=== PATIENT | male | born 1995 | race Hispanic/Latino ===

== ENCOUNTER 2018-04-20 10:32 | Inpatient (IN) | payer SELFPAY ==
[2018-04-20] MEDS ORDERED: Fentanyl 100 MCG/2 ML VIAL ONE (10:45)
[2018-04-20 11:02] LABS: #Basophils 0.1 thou/uL (0.0-0.2); #Eosinphils 0.2 thou/uL (0.0-0.7); #Lymphocytes 2.1 thou/uL (1.20-3.40); #Monocytes 0.9 thou/uL (0.11-0.59); #Neutrophils 4.9 thou/uL (1.40-6.50); %Basophils 1.1 % (0.0-1.0); %Eosinophils 2.2 % (0.0-10.0); %Lymphocytes 25.5 % (21.0-51.0); %Monocytes 11.4 % (0.0-10.0); %Neutrophils 59.9 % (42.0-75.0); Hemoglobin 16.6 g/dL (14.0-18.0); Mean Corpuscular HGB CONC 34.9 g/dL (32.0-36.0); Mean Corpuscular Hemoglobin 32.5 pg (27.0-31.0); Mean Corpuscular Volume 93.1 fL (78.0-98.0); Mean Platelet Volume 7.5 fL (7.4-10.4); Platelet Count 199 thou/uL (130-400); RBC Distribution Width 11.7 % (11.5-14.5); Red Blood Cell (RBC) Count 5.11 mill/uL (4.70-6.10); White Blood Cell (WBC) Count 8.2 thou/uL (4.8-10.8)
--- NOTE | 2018-04-20 11:13 | RAD ---
PORTABLE CHEST ONE VIEW: Date: 04-20-18 Time: 10:38 a.m. History: Fell off an 8 ft ladder. Chest pain. FINDINGS: The heart size is normal. The lungs are expanded without focal areas of consolidation, pneumothorax, or pleural effusions. IMPRESSION: No acute process. POS: [facility]
[2018-04-20 11:22] LABS: ALT (SGPT) 27 U/L (8-55); AST (SGOT) 24 U/L (5-34); Albumin 4.6 g/dL (3.5-5.0); Alkaline Phosphatase 118 U/L (40-150); Anion Gap 15 mmol/L (10-20); BUN (Urea Nitrogen) 16 mg/dL (8.9-20.6); Bilirubin, Total 1.1 mg/dL (0.2-1.2); Calc. Creatinine Clearance 0 mL/min (70-130); Calcium 9.9 mg/dL (7.8-10.44); Carbon Dioxide 23 mmol/L (22-29); Chloride 106 mmol/L (98-107); Estimated GFR-MDRD 76; Globulin 3.3 g/dL (2.4-3.5); Glucose 102 mg/dL (70-105); Potassium 3.7 mmol/L (3.5-5.1); Protein, Total 7.9 g/dL (6.0-8.3); Sodium 140 mmol/L (136-145)
--- NOTE | 2018-04-20 11:33 | RAD ---
RIGHT LEG TWO VIEWS: History: Fall, right leg pain and deformity. FINDINGS/IMPRESSION: There are displaced fractures involving the shafts of the right tibia and fibula. Mild angulation is also present. POS: [facility]
--- NOTE | 2018-04-20 11:41 | CT ---
CT CERVICAL SPINE WITH CORONAL AND SAGITTAL REFORMATIONS: Date: 04/20/18 HISTORY: Level II trauma, fall from 8-ft. FINDINGS: No acute fracture or subluxation is seen. No facet malalignment is identified. The cervical lordosis is maintained. There are mild degenerative changes at C5-6 level. Report called over the phone to Dr. Angelina Chery of the emergency room at 1118 hours. CODE CR. POS: [facility]
--- NOTE | 2018-04-20 11:46 | CT ---
CT BRAIN WITHOUT CONTRAST: History: Fell from approximately 8 ft. No loss of consciousness. FINDINGS: No evidence of acute infarct, hemorrhage, midline shift, or abnormal extraaxial fluid collections are seen. The ventricular size is normal and basilar cisterns are patent. The bony calvarium is intact. There is mucosal disease in the paranasal sinuses. IMPRESSION: No CT evidence of acute intracranial process. The report was called over the telephone to Dr. Mills in the Emergency Department at 11:13 a.m. POS: [facility]
[2018-04-20] MEDS ORDERED: KETAMINE 100 MG/ML (5ML VIAL) ONE (12:40)
--- NOTE | 2018-04-20 13:38 | HP-2 ---
HISTORY OF PRESENT ILLNESS: The patient is a 22-year-old male that presents after falling f rom a roof this morning while at work. The patient says he slipped on a piece of paper and fell appr oximately 12 feet from the roof landing on both of his feet. His right lower extremity buckled out f rom under him. He denies hitting his right hip or his head. No loss of consciousness. Pain is curr ently 10/10. He has been unable to walk since the fall. Last p.o. intake was at 1700 yesterday. Th e patient complains of right lower extremity pain. Denies cervical or back pain. Denies headache. PAST MEDICAL HISTORY: None. HOME MEDICATIONS: None. PAST SURGICAL HISTORY: None. ALLERGIES: None. REVIEW OF SYSTEMS: Positive for right lower extremity pain as per HPI. Remainder of review of syste ms negative. PHYSICAL EXAMINATION: VITAL SIGNS: BP 136/70, respirations 20, O2 sat 98% on room air, temperature 97.4, pulse 76. GENERAL: Well-nourished, well-developed male. Lying in bed in pain. CARDIOVASCULAR: Heart regular rate and rhythm, no murmur. RESPIRATORY: Lungs are clear to auscultation bilaterally, no increased work of breathing. GASTROINTESTINAL: The abdomen is soft, nontender, nondistended. Bowel sounds present. MUSCULOSKELETAL: Cervical spine with full range of motion, no pain. Negative cervical compression t est. Gross deformity of right lower extremity. Closed fracture. Pedal pulses present bilaterally. Swelling of right foot. NEUROLOGIC: No focal deficits. LABORATORY DATA: WBC 8.2, hemoglobin 16.6, hematocrit 47.6, platelets 199. Sodium 140, potassium 3. 7, chloride 106, carbon dioxide 23, BUN 16, creatinine 1.18, glucose 102, calcium 9.9, total bilirubi n 1.1, AST 24, ALT 27, alkaline phosphatase 118. IMAGING: CT cervical spine without contrast. No acute fracture or subluxation is seen. No facet ma lalignment identified. Cervical lordosis is maintained. Mild degenerative changes at C5-C6. CT brain without contrast: No evidence of acute intracranial process. X-ray tib/fib right leg 2-view: Displaced fractures involving the shafts of the right tibia and fibu la. Mild angulation also present. Chest x-ray 1 view: No acute process. ASSESSMENT AND PLAN: Fall complicated by right displaced tibia and fibula fractures with angulation, closed. Orthopedic surgery, Dr. Menendez, was consulted. Plan for reduction today in the ER follo wed with surgery tomorrow morning. N.p.o. after midnight. Cleared the cervical spine so C-collar no longer needed and was removed. Medications added for better pain control. Right foot x-ray is curr ently pending. The patient was seen and examined with Dr. Porter. Plan was formulated with Dr. Porter.
[2018-04-20] MEDS ORDERED: Dextrose 5% in Water 1,000 ML IV PRN (14:17)
[2018-04-20] MEDS ORDERED: Dextrose 50% Abboject 50 ML SYRINGE SLOW IVP PRN (14:17)
--- NOTE | 2018-04-20 14:26 | RAD ---
RIGHT FOOT THREE VIEWS: Date: 04-20-18 History: Patient fell off 8 ft ladder. Obvious right ankle deformity. FINDINGS: Splint material overlies the foot limiting osseous detail. However, on the AP project of the foot, th ere is a lucency along the long axis of the most lateral aspect of the medial cuneiform which may rep resent a tiny avulsion fracture. In addition, the base of the right second metatarsal does appear to be displaced laterally with respect to the middle cuneiform. Lisfranc injury in this region cannot be excluded and CT scan of the foot is recommended for further evaluation. No additional fracture is se en and there is no dislocation. Subcutaneous soft tissue swelling is seen dorsal to the level of the metatarsals. IMPRESSION: Tiny avulsion fracture seen at the lateral aspect of the medial cuneiform bone with suggestion of sli ght displacement of the base of the second metatarsal related to the middle cuneiform bone suggesting subtle lisfranc injury. CT scan of the right foot is recommended for further evaluation. Above findings discussed with Dr. Kasper in the Emergency Department on 04-20-18 at 1335 hours. POS: [facility]
--- NOTE | 2018-04-20 14:32 | RAD ---
RIGHT LEG 2 VIEWS: Date: 04/20/18 HISTORY: Right tibia and fibula fractures, reduction. FINDINGS/IMPRESSION: There is an interval reduction of the comminuted and displaced fractures involving the shafts of the right tibia and fibula since earlier exam at 1034 hours. POS: [facility]
--- NOTE | 2018-04-20 14:44 | CT ---
CT RIGHT FOOT NONCONTRAST: Date: 04/20/18 HISTORY: Fall. Foot fracture. FINDINGS: Comminuted fracture of the medial cuneiform includes two nondisplaced planes into the first tarsometa tarsal joint. A 0.8 cm triangular fragment is displaced 0.2 cm laterally at the lateral articular mar gin of the medial cuneiform. There is less than 0.2 cm lateral subluxation of the second metatarsal i n relation to the medial cuneiform. Nondisplaced axial fracture extends through the inferior margin o f the middle cuneiform. Metatarsal bases are intact. IMPRESSION: Midfoot fracture/dislocation as detailed above, involving the medial and middle cuneiforms, and mild lateral subluxation at the second tarsometatarsal joint. Please consider immobilization and urgent or thopedic evaluation. POS: [facility]
[2018-04-20] MEDS: Ketorolac Tromethamine 30 MG/ML VIAL IVP SCH ×3 (16:08→22:08)
[2018-04-20] MEDS: HYDROcodone/Acetaminophen 10/325 mg Tablet PO PRN (16:08)
[2018-04-20] MEDS: Cyclobenzaprine 10 MG TAB PO PRN (17:53)
[2018-04-20] MEDS ORDERED: HYDROcodone/Acetaminophen 10/325 mg Tablet PO SCH (18:00)
[2018-04-20] MEDS ORDERED: Gabapentin 300 MG CAP PO SCH (18:00)
--- NOTE | 2018-04-20 19:48 | CON ---
DATE OF CONSULTATION: 04/20/2018 CHIEF COMPLAINT: Right leg pain. HISTORY OF PRESENT ILLNESS: Mr. Gagnon is a 22-year-old male who has fallen from a ladder. He landed hard on his right leg. He fell approximately 12 feet. He slipped and simply lost his balance. He had immediate pain in the right leg. He was unable to ambulate. He felt a cracking sensation. He d id not lose consciousness. He has been stable since arrival to the emergency department. PAST MEDICAL HISTORY: Negative. PAST SURGICAL HISTORY: Negative. ALLERGIES: None. REVIEW OF SYSTEMS: Positive for right leg pain as per HPI. FAMILY MEDICAL HISTORY: Noncontributory. PHYSICAL EXAMINATION: VITAL SIGNS: Blood pressure is 136/70, respiratory rate is 18, 98% on room air, pulse is 76, tempera ture is 97.4. GENERAL: He is alert and oriented, lying supine, in no apparent distress. HEENT: Normocephalic, atraumatic. RESPIRATORY: Breathing comfortably. ABDOMEN: Soft, nontender, nondistended. CARDIOVASCULAR: Pulses palpable and regular peripherally. MUSCULOSKELETAL: The patient's right lower extremity has deformity. He has swelling and ecchymosis. The compartments are soft. He is able to flex and extend the foot and ankle. He has a palpable do rsalis pedis pulse. Sensation is intact in the toes. He does have ecchymosis over the mid foot as w ell with swelling. Left lower extremity and upper extremities are atraumatic. IMAGES: X-rays of the tibia on the right side demonstrated midshaft fracture with significant displa cement as well as a midshaft fibula fracture. Right foot x-rays demonstrated very small fracture of the medial cuneiform with slight widening of the Lisfranc interval. IMPRESSION: Right tibia and fibula fracture, status post fall from roof as well as possible Lisfranc fracture. PLAN: The patient will need to go to the operating room. He will be splinted today and will have pa in control. He should be n.p.o. at midnight. He will have appropriate DVT prophylaxis and antibioti c prophylaxis. I will take him to the operating room tomorrow morning for intramedullary nail fixati on of the tibia as well as stress view of the Lisfranc joint. If there is widening, I will go ahead and perform a screw fixation of the Lisfranc joint to stabilize this as well. 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 Questions have b een answered. Risks do include infection, pain, scarring, nerve or vascular injury, nonunion, maluni on and others.
[2018-04-20] MEDS: Gabapentin 300 MG CAP PO SCH (20:29)
[2018-04-20] MEDS: HYDROcodone/Acetaminophen 10/325 mg Tablet PO SCH (20:30)
[2018-04-20] MEDS ORDERED: Acetaminophen 325 MG TAB PO PRN (23:28)
[2018-04-20] MEDS: Sodium Chloride 0.9% 1,000 ML IV SCH (23:43)
[2018-04-21] MEDS: HYDROcodone/Acetaminophen 10/325 mg Tablet PO SCH ×4 (02:02→20:40)
[2018-04-21] MEDS: Ketorolac Tromethamine 30 MG/ML VIAL IVP SCH ×4 (04:00→22:10)
[2018-04-21 05:57] LABS: #Basophils 0.1 thou/uL (0.0-0.2); #Eosinphils 0.1 thou/uL (0.0-0.7); #Lymphocytes 1.6 thou/uL (1.20-3.40); #Monocytes 0.8 thou/uL (0.11-0.59); %Basophils 0.5 % (0.0-1.0); %Eosinophils 1.2 % (0.0-10.0); %Lymphocytes 12.7 % (21.0-51.0); %Monocytes 6.7 % (0.0-10.0); %Neutrophils 78.9 % (42.0-75.0); Hemoglobin 14.4 g/dL (14.0-18.0); Mean Corpuscular HGB CONC 33.9 g/dL (32.0-36.0); Mean Corpuscular Hemoglobin 31.8 pg (27.0-31.0); Mean Corpuscular Volume 93.9 fL (78.0-98.0); Mean Platelet Volume 7.4 fL (7.4-10.4); Platelet Count 173 thou/uL (130-400); RBC Distribution Width 11.8 % (11.5-14.5); Red Blood Cell (RBC) Count 4.52 mill/uL (4.70-6.10); White Blood Cell (WBC) Count 12.6 thou/uL (4.8-10.8)
[2018-04-21 06:19] LABS: Anion Gap 14 mmol/L (10-20); BUN (Urea Nitrogen) 16 mg/dL (8.9-20.6); Calc. Creatinine Clearance 0 mL/min (70-130); Calcium 8.8 mg/dL (7.8-10.44); Carbon Dioxide 23 mmol/L (22-29); Chloride 102 mmol/L (98-107); Estimated GFR-MDRD 71; Glucose 100 mg/dL (70-105); Magnesium 1.7 mg/dL (1.6-2.6); Phosphorus 3.5 mg/dL (2.3-4.7); Potassium 4.3 mmol/L (3.5-5.1); Sodium 135 mmol/L (136-145)
[2018-04-21] MEDS: Sodium Chloride 0.9% 1,000 ML IV SCH ×2 (06:22→16:25)
[2018-04-21] MEDS: Cyclobenzaprine 10 MG TAB PO PRN (07:17)
[2018-04-21] MEDS: Gabapentin 300 MG CAP PO SCH ×3 (08:18→20:40)
[2018-04-21] MEDS ORDERED: Lidocaine 1% PF 5 ML VIAL ONE (10:26)
[2018-04-21] MEDS ORDERED: Ondansetron PF 4 MG/2 ML Vial ONE (10:26)
[2018-04-21] MEDS ORDERED: PROPOFOL 200 MG/20 ML VIAL ONE (10:26)
[2018-04-21] MEDS ORDERED: CEFAZOLIN/Water 2 GM/20 ML SYRINGE SLOW IVP SCH (10:30)
--- NOTE | 2018-04-21 13:01 | PRG-2 ---
DATE OF SERVICE: 04/21/2018 SUBJECTIVE: This is a 22-year-old male that presented after falling from a roof yesterday, sufferin g from a right tibia fibula fracture as well as right foot fractures. The patient reports he rested well last night. Currently, n.p.o. and awaiting surgery this morning. Reports pain has been better controlled, currently 5/10. The patient was noted to have a temperature of 100.9 last night. OBJECTIVE: VITAL SIGNS: Temperature 98.4, pulse 69, respirations 16, O2 sat 98% on room air, BP 127/80. LABORATORY DATA: WBC at 12.6, hemoglobin 14.4, hematocrit 42.5, platelets 173, sodium 135, potassium 4.3, chloride 102, carbon dioxide 23, BUN 16, creatinine 1.25, calcium 8.8. GENERAL: Well-nourished, well-developed male, resting comfortably in bed. CARDIOVASCULAR: Regular rate and rhythm. No murmur. LUNGS: Clear to auscultation bilaterally, no increased work of breathing. GASTROINTESTINAL: Soft, nontender, nondistended, bowel sounds present. MUSCULOSKELETAL: Right foot and leg splint in place. Bandage is clean, dry and intact. NEUROLOGIC: No focal deficits. ASSESSMENT AND PLAN: 1. Right tibia fibula fracture, displaced. 2. Mid foot fracture/dislocation. Lisfranc joint. 3. Leukocytosis. PLAN: Plan to proceed to surgery today with Dr. Menednez. The patient is to be n.p.o. until that t colette. Continue current pain management and will reassess in the postoperative period. We will contin ue to monitor labs and vitals. All the patient's questions were answered at the bedside. The patient was seen and examined with Dr. Porter. Dr. Porter personally examined the patient and is i n agreement with the plan as noted above.
[2018-04-21] MEDS ORDERED: HYDROmorphone 0.5 MG/0.5 ML SYRINGE ONE (13:08)
--- NOTE | 2018-04-21 13:27 | RAD ---
RIGHT TIBIA AND FIBULA SIX INTRAOPERATIVE RADIOGRAPHS: History: Tibial fracture. FINDINGS: Images demonstrate placement of an intraosseous nail in the right tibia. Proximal screws are seen acr oss the fracture site. In addition, there is a midshaft right fibular fracture also present. IMPRESSION: Open reduction internal fixation of right mid tibial fracture. POS: [facility]
[2018-04-21] MEDS ORDERED: Ondansetron HCl/PF 4 MG/2 ML Vial IVP PRN (13:35)
[2018-04-21] MEDS ORDERED: Promethazine HCl 25 MG/ML VIAL IM PRN (13:35)
[2018-04-21] MEDS ORDERED: HYDROmorphone 2 MG/ML VIAL SLOW IVP PRN (13:35)
[2018-04-21] MEDS ORDERED: Promethazine HCl 25 MG/ML VIAL SLOW IVP PRN (13:35)
[2018-04-21] MEDS: CEFAZOLIN/Water 2 GM/20 ML SYRINGE SLOW IVP SCH ×2 (14:03→22:05)
--- NOTE | 2018-04-21 18:11 | OP ---
DATE OF OPERATION: 04/21/2018 OPERATIONS: 1. Intramedullary nail of right tibia fracture. 2. Closed treatment of right foot Lisfranc injury. PREOPERATIVE DIAGNOSES: Right tibia and fibula midshaft fracture and right Lisfranc foot fracture. POSTOPERATIVE DIAGNOSES: Right tibia and fibula midshaft fracture and right Lisfranc foot fracture. COMPLICATIONS: None. ESTIMATED BLOOD LOSS: 150 mL SURGEON: Darius Menendez M.D. ANESTHESIA: General. IMPLANTS: Synthes tibial nail size 350 x 9 mm with cross lock screws. INDICATIONS: Mr. Chante Freeman is a 22-year-old male who fell from a roof. He fractured his right tibia, fibula and medial cuneiform. He was indicated for the above procedures to restore anatomic a lignment, provide stability and promote healing. Risks have been reviewed in detail. He has elected to proceed with the operation. DESCRIPTION OF PROCEDURE: Mr. Chante Freeman was identified in the preoperative holding area. His correct extremity was marked. He was carried to the operating room. He was positioned supine. Gene ral anesthesia was induced. A multidisciplinary timeout was performed. The right lower extremity wa s prepped and draped in sterile fashion. We began the procedure with an anterior approach to the knee. We dissected down through the subcutan eous tissues to the patellar tendon and retinaculum. We made a patellar split. We then palpated the anterior aspect of the proximal tibia. A guidewire was inserted. We overdrilled the wire. At this point, we passed a ball-tip guidewire across the fracture site into the distal tibia centered at the ankle mortise. Next, we overreamed our guidewire up to a size 10 mm reamer. We then impacted a 9 x 315 mm Synthes nail. This was then seated using a mallet. We took x-ray images confirming hardware placement and that the fracture was fully reduced. We checked our external rotation of the foot. At this point, we proceeded with proximal cross lock screw placement. Two screws were placed using t he appropriate guide. We then placed 2 screws distally using perfect standing rock technique. We thoroughl y irrigated all wounds and then closed in layers, 0 Vicryl suture, 2-0 Vicryl suture and kenneth were used. At this point, we evaluated the foot under intraoperative x-ray. We identified the Lisfranc joint an d the medial cuneiform fracture. This was minimally displaced with no significant widening. We then stressed the mid foot to see if this would open and it did not under intraoperative x-ray. We decid ed to treat this in a closed fashion. At this point, sterile dressings were applied and a long splin t was placed in a posterior and U fashion. This was well padded. The patient was taken to the [facility] room in good condition without complication.
[2018-04-21] MEDS ORDERED: Acetaminophen 325 MG TAB PO SCH (22:45)
[2018-04-21] MEDS ORDERED: Ibuprofen 800 MG TAB PO SCH (23:00)
[2018-04-21] MEDS ORDERED: traMADol HCl 50 MG TAB PO SCH (23:00)
[2018-04-22] MEDS: traMADol HCl 50 MG TAB PO SCH ×4 (04:00→23:05)
[2018-04-22] MEDS ORDERED: Acetaminophen 325 MG TAB PO SCH (04:30)
[2018-04-22] MEDS ORDERED: Cepastat Lozenges 1 LOZ PO PRN (05:24)
[2018-04-22] MEDS: Ibuprofen 800 MG TAB PO SCH ×3 (06:03→23:06)
[2018-04-22 06:14] LABS: #Basophils 0.1 thou/uL (0.0-0.2); #Lymphocytes 0.9 thou/uL (1.20-3.40); #Monocytes 0.6 thou/uL (0.11-0.59); #Neutrophils 10.2 thou/uL (1.40-6.50); %Eosinophils 0.1 % (0.0-10.0); %Lymphocytes 7.2 % (21.0-51.0); %Monocytes 5.1 % (0.0-10.0); %Neutrophils 86.5 % (42.0-75.0); Hemoglobin 12.4 g/dL (14.0-18.0); Mean Corpuscular HGB CONC 34.1 g/dL (32.0-36.0); Mean Corpuscular Hemoglobin 32.3 pg (27.0-31.0); Mean Corpuscular Volume 94.7 fL (78.0-98.0); Mean Platelet Volume 7.5 fL (7.4-10.4); Platelet Count 158 thou/uL (130-400); RBC Distribution Width 11.6 % (11.5-14.5); Red Blood Cell (RBC) Count 3.83 mill/uL (4.70-6.10); White Blood Cell (WBC) Count 11.7 thou/uL (4.8-10.8)
[2018-04-22 06:18] LABS: Anion Gap 11 mmol/L (10-20); BUN (Urea Nitrogen) 15 mg/dL (8.9-20.6); Calc. Creatinine Clearance 0 mL/min (70-130); Calcium 8.6 mg/dL (7.8-10.44); Carbon Dioxide 26 mmol/L (22-29); Chloride 109 mmol/L (98-107); Estimated GFR-MDRD Greater than 90; Glucose 154 mg/dL (70-105); Potassium 4.5 mmol/L (3.5-5.1); Sodium 141 mmol/L (136-145)
[2018-04-22] MEDS: HYDROcodone/Acetaminophen 10/325 mg Tablet PO PRN (08:17)
[2018-04-22] MEDS: Gabapentin 300 MG CAP PO SCH ×3 (08:17→21:15)
[2018-04-22] MEDS: Enoxaparin Sodium 40 MG/0.4 ML SYRINGE SC SCH (09:42)
[2018-04-22] MEDS: HYDROcodone/Acetaminophen 10/325 mg Tablet PO SCH ×3 (10:09→21:15)
[2018-04-22] MEDS ORDERED: Polyethylene Glycol 3350 17 GM Packet PO SCH (18:06)
[2018-04-22] MEDS: Senokot S 8.6-50 MG TAB PO SCH (21:15)
[2018-04-23] MEDS: HYDROcodone/Acetaminophen 10/325 mg Tablet PO SCH ×3 (03:22→15:31)
[2018-04-23 04:36] LABS: #Eosinphils 0.3 thou/uL (0.0-0.7); #Lymphocytes 2.9 thou/uL (1.20-3.40); #Monocytes 0.6 thou/uL (0.11-0.59); #Neutrophils 5.9 thou/uL (1.40-6.50); %Basophils 0.4 % (0.0-1.0); %Eosinophils 2.7 % (0.0-10.0); %Lymphocytes 29.6 % (21.0-51.0); %Monocytes 6.5 % (0.0-10.0); %Neutrophils 60.8 % (42.0-75.0); Mean Corpuscular HGB CONC 34.1 g/dL (32.0-36.0); Mean Corpuscular Hemoglobin 32.5 pg (27.0-31.0); Mean Corpuscular Volume 95.5 fL (78.0-98.0); Mean Platelet Volume 7.7 fL (7.4-10.4); Platelet Count 183 thou/uL (130-400); RBC Distribution Width 11.6 % (11.5-14.5); Red Blood Cell (RBC) Count 3.68 mill/uL (4.70-6.10); White Blood Cell (WBC) Count 9.8 thou/uL (4.8-10.8)
[2018-04-23] MEDS: traMADol HCl 50 MG TAB PO SCH ×2 (04:56→10:36)
[2018-04-23 04:58] LABS: Anion Gap 11 mmol/L (10-20); BUN (Urea Nitrogen) 13 mg/dL (8.9-20.6); Calc. Creatinine Clearance 0 mL/min (70-130); Calcium 8.7 mg/dL (7.8-10.44); Carbon Dioxide 29 mmol/L (22-29); Chloride 107 mmol/L (98-107); Estimated GFR-MDRD Greater than 90; Glucose 99 mg/dL (70-105); Potassium 4.5 mmol/L (3.5-5.1); Sodium 142 mmol/L (136-145)
[2018-04-23] MEDS: Ibuprofen 800 MG TAB PO SCH ×2 (06:39→15:07)
--- NOTE | 2018-04-23 08:18 | PRG-2 ---
DATE OF SERVICE: 04/22/2018. SUBJECTIVE: A 22-year-old male status post fall with right tibia and fibula midshaft fracture and right Lisfranc foot fracture. The patient continues to have right leg pain, 8/10 this morning. Has passed gas, tolerating regular diet well. No nausea or vomiting. Required nasal cannula overnight for desatting. OBJECTIVE: VITAL SIGNS: Temperature 98.1, pulse 67, respiration 20, O2 sat 98% on 1 liter nasal cannula, blood pressure 113/64. LABORATORY DATA: White blood cell 11.7, hemoglobin 12.4, hematocrit 36.2, platelets 158. Sodium 141, potassium 4.5, chloride 109, carbon dioxide 26, BUN 15, creatinine 0.9, glucose 154. PHYSICAL EXAMINATION: GENERAL: Well-developed male, in no acute distress. HEART: Regular rate and rhythm, no murmur. LUNGS: Clear to auscultation bilaterally, no increased work of breathing, symmetric chest rise, nasal cannula in place. GASTROINTESTINAL: Soft, nontender, nondistended, bowel sounds present. MUSCULOSKELETAL: Right leg and foot bandage in place, clean, dry, and intact. NEUROLOGIC: No focal deficits. ASSESSMENT AND PLAN: 1. Right tibia and fibula midshaft fractures, status post intramedullary nail of right tibia. 2. Right Lisfranc foot fracture. 3. Leukocytosis, improving. PLAN: We will make changes to pain medication regimen to improve current pain control. PT ordered to teach crutches. Started on DVT prophylaxis. Continue regular diet. We will continue to wean down supplemental oxygen as tolerated. All the patient's questions were answered at the bedside. The patient was seen and examined by Dr. Porter. Dr. Porter formulated and is in agreement with the plan above. KALYAN
[2018-04-23] MEDS: Enoxaparin Sodium 40 MG/0.4 ML SYRINGE SC SCH (08:53)
[2018-04-23] MEDS: Gabapentin 300 MG CAP PO SCH ×2 (08:54→15:07)
[2018-04-23] MEDS: Senokot S 8.6-50 MG TAB PO SCH (08:58)
[2018-04-23] MEDS ORDERED: Polyethylene Glycol 3350 17 GM Packet PO SCH (09:00)
--- NOTE | 2018-04-23 11:59 | DIS-2 ---
DATE OF ADMISSION: 04/20/2018 DATE OF DISCHARGE: 04/23/2018 ADMITTING ATTENDING: Chu Porter DO. DISCHARGE ATTENDING: Chu Porter DO. CONSULTS: Orthopedic Surgery, Darius Menendez M.D. PROCEDURES: On 04/21/2018, the patient underwent right tibia intramedullary nail placement and close d treatment of right Lisfranc fracture in the foot. PRIMARY DIAGNOSES: 1. Right tibia and fibula midshaft fractures. 2. Right foot Lisfranc fracture. DISCHARGE MEDICATIONS: [place] as prescribed by Orthopedic Surgery. HOSPITAL COURSE: The patient presented to the ER after falling from a roof while at work resulting i n right tibia and fibula fractures as well as right foot Lisfranc fracture. The patient's lower extr emity was splinted. On 04/21/2018, the patient underwent surgery with Dr. Menendez for right intram edullary nail placement. The patient required supplemental O2 via nasal cannula in the immediate pos top period, but was then weaned off. We continued to manage the patient's pain. Physical therapy ta ught the patient how to ambulate with crutches. The patient's hospital course was uncomplicated and the patient is stable for discharge home. DISPOSITION: Stable. DISCHARGE INSTRUCTIONS: 1. Location: Home. 2. Diet: Regular. 3. Activity: Nonweightbearing on right leg, per Orthopedic recommendations. 4. Follow up with Orthopedic Surgery, Dr. Menendez in 10 days.
[2018-04-23 13:05] VITALS: BP 121/73; TEMP 97.8
== END 2018-04-23 15:50 | disposition home or self-care (01) | DRG 494 ==
LOC: ERS 10:32 → SURG A 11:56
PROVIDERS: ADMIT Surgery; ATTEND Surgery
PROC: 0QHG06Z Insertion of Intramedullary Internal Fixation Device into Right Tibia, Open Approach (ICD-10-PCS; principal; 2018-04-21)
DX: S82.201A Unspecified fracture of shaft of right tibia, initial encounter for closed fracture (principal); S82.401A Unspecified fracture of shaft of right fibula, initial encounter for closed fracture; W13.2XXA Fall from, out of or through roof, initial encounter; Y92.9 Unspecified place or not applicable; S92.811A Other fracture of right foot, initial encounter for closed fracture
CPT/HCPCS: 27752; 36415; 70450; 71045; 72125; 76001; 80048; 80053; 83735; 84100; 85025; 86850; 86900; 86901; 94760; 96374; 96375; 99152; C1713; C1769; G0390; G8978-GP-CL; G8979-GP-CJ; J1170; J1650; J1885; J2001; J2270; J2405; J2704; J3010